=== PATIENT | male | born 1975 | race African-American/Black ===

== ENCOUNTER 2016-06-15 01:58 | Emergency (ER) | payer BC ==
[2016-06-15 02:09] VITALS: BP 123/75
[2016-06-15] MEDS ORDERED: Oseltamivir CAP* 75 MG PO ONE (02:44)
[2016-06-15] MEDS ORDERED: Ibuprofen TAB* 400 MG PO ONE (02:45)
--- NOTE | 2016-06-15 03:01 | ED ---
I, Todd,Huy, scribed for Leny Glez MD on 06/15/16 at 0249 . Influenza-Like Illness - HPI Summary HPI Summary: This 41 y/o male presents to ED for flu-like symptoms since yesterday. Pt reports sore throat, left sided face pain, general myalgia, and chills, but denies any cough. Temperature of 100.6 F is noted at triage. He has been controlling his symptoms with Theraflu and APAP without much relief. PMHx includes recurrent sinus infection. 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 He lives with his and two kids, each 8 y/o and 16 y/o. - History of Current Complaint Chief Complaint: EDFluSymptoms Time Seen by Provider: 06/15/16 02:26 Hx Obtained From: Patient, Medical Records Onset/Duration: Sudden Onset, Still Present Associated Signs & Symptoms: Fever, T Max - 100.6 F, Myalgia, Sore Throat - Allergy/Home Medications Allergies/Adverse Reactions: Allergies Allergy/AdvReac Type Severity Reaction Status Date / Time Prochlorperazine Allergy Intermediate Anxiety Verified 04/30/15 10:38 [From Compazine] PMH/Surg Hx/FS Hx/Imm Hx Endocrine/Hematology History: Denies: Hx Diabetes, Hx Thyroid Disease Cardiovascular History: Denies: Hx Congestive Heart Failure, Hx Deep Vein Thrombosis, Hx Hypertension , Hx Myocardial Infarction, Hx Pacemaker/ICD Respiratory History: Reports: Other Respiratory Problems/Disorders - recurrent sinusitis Denies: Hx Asthma, Hx Chronic Obstructive Pulmonary Disease (COPD), Hx Lung Cancer GI History: Denies: Hx Gall Bladder Disease, Hx Gastrointestinal Bleed, Hx Ulcer, Hx Urosepsis History: Denies: Hx Kidney Stones, Hx Renal Disease Neurological History: Denies: Hx Dementia, Hx Migraine, Hx Seizures, Hx Transient Ischemic Attacks (TIA) Psychiatric History: Denies: Hx Anxiety, Hx Depression, Hx Schizophrenia, Hx Bipolar Disorder Infectious Disease History: No Infectious Disease History: Denies: Hx Hepatitis, Hx Human Immunodeficiency Virus (HIV), History Other Infectious Disease, Traveled Outside the [place] in Last 30 Days - Family History Known Family History: Negative: Hypertension, Diabetes - Social History Lives: With Family - and kids, 8 y/o and 16 y/o Alcohol Use: None Hx Substance Use: No Substance Use Type: Reports: None Hx Tobacco Use: No Smoking Status (MU): Never Smoked Tobacco Have You Smoked in the Last Year: No Review of Systems Positive: Fever - temperature of 100.6 F at triage, Chills Positive: Sore Throat Positive: Myalgia - general myalgia Negative: Anxious, Depressed All Other Systems Reviewed And Are Negative: Yes Physical Exam Triage Information Reviewed: Yes Vital Signs On Initial Exam: Initial Vitals Temp Pulse Resp BP Pulse Ox 100.6 F 105 16 123/75 96 06/15/16 02:04 06/15/16 02:04 06/15/16 02:04 06/15/16 02:04 06/15/16 02:04 Vital Signs Reviewed: Yes Appearance: Positive: Ill-Appearing Skin: Positive: Warm, Skin Color Reflects Adequate Perfusion, Dry Head/Face: Positive: Normal Head/Face Inspection Eyes: Positive: EOMI, NOHELIA, Conjunctiva Clear Neck: Positive: Supple, Nontender, No Lymphadenopathy Cardiovascular: Positive: RRR, Pulses are Symmetrical in both Upper and Lower Extremities Abdomen Description: Positive: Nontender, Soft Musculoskeletal: Positive: Strength/ROM Intact Neurological: Positive: Sensory/Motor Intact, Alert, Oriented to Person Place, Time Psychiatric: Positive: Affect/Mood Appropriate AVPU Assessment: Alert Diagnostics - Vital Signs Vital Signs Temp Pulse Resp BP Pulse Ox 06/15/16 02:04 100.6 F 105 16 123/75 96 - Laboratory Lab Results: Lab Results 06/15/16 Range/Units 02:35 Influenza A (Rapid) Negative (Negative) Influenza B (Rapid) Negative (Negative) Lab Statement: Any lab studies that have been ordered have been reviewed, and results considered in the medical decision making process. Flu Symptom Course/Dx - Course Assessment/Plan: This 41 y/o male presents to ED for acute flu-like symptoms since last evening. Pt reports chills, general myalgia, and sore throat. Negative cough. Rapid flu is negative. Plan of care involving empirical treatment with Tamiflu and ibuprofen and discharge with work note is discussed with pt and pt's parents present at bedside. Pt is agreeable. Upon evaluation of pt his flu swab had been taken and patient and family asked if he could go home now. Pt was treated presumptively for flu given symptoms, his flu swab is actually negative, so upon discharge, plan was discussed with family that the neg swab may be a false negative as seen with flu or not and that if his symptoms worsened a bigger workup was necessary and that the workup could be done now, family elected to leave and will bring patient back for worsened symptoms. Pt is non-toxic appearing and has no co-morbidities making sepsis a likely candidate in this situation - Diagnoses Provider Diagnoses: Flu-like symptoms Discharge - Discharge Plan Condition: Stable Disposition: HOME Prescriptions: Ibuprofen TAB* [Motrin TAB* 800 MG] 800 mg PO Q6H PRN #20 tab PRN Reason: Fever Oseltamivir CAP* [Tamiflu CAP*] 75 mg PO BID #9 cap Patient Education Materials: Ibuprofen (By mouth), Oseltamivir (By mouth), Influenza (ED) Forms: *Work Release Referrals: Kendell Cannon MD [Primary Care Provider] - 2 Days The documentation as recorded by the Todd soto Soohyun accurately reflects the service I personally performed and the decisions made by me, Leny Glez MD.
== END 2016-06-15 02:59 | disposition home or self-care (01) ==
LOC: ED 01:58
DX: J11.1 Influenza due to unidentified influenza virus with other respiratory manifestations (principal); J02.9 Acute pharyngitis, unspecified; R51 Headache
CPT/HCPCS: 87502; 99282; A9270-GY

== ENCOUNTER 2017-06-21 18:44 | Emergency (ER) | payer BC ==
[2017-06-21 19:46] VITALS: BP 125/69
--- NOTE | 2017-06-21 21:05 | UC ---
FLU HPI - HPI Summary HPI Summary: Pt presents with body aches and fatigue since yesterday. He tells me that his is sick with similar symptoms and that his son was recently diagnosed with the flu. He has been taking tylenol for his discomfort. Denies cough, SOB, chest pain, abdominal pain, n/v/d/c. - History of Current Complaint Chief Complaint: UCRespiratory Stated Complaint: BODYACHES,CONGESTED Hx Obtained From: Patient Onset/Duration: Sudden Onset Severity Currently: Moderate Severity Initially: Moderate Pain Intensity: 7 Pain Scale Used: 0-10 Numeric - Allergy/Home Medications Allergies/Adverse Reactions: Allergies Allergy/AdvReac Type Severity Reaction Status Date / Time prochlorperazine Allergy Severe ANXIETY; Verified 06/21/17 19:46 [From Compazine] DYSTONIC REACTION Home Medications: Home Medications Acetaminophen [Mapap] 1,000 mg PO PRN 06/21/17 [History] PMH/Surg Hx/FS Hx/Imm Hx Previously Healthy: Yes - Surgical History Surgical History: None - Family History Known Family History: Positive: None Negative: Hypertension, Diabetes - Social History Occupation: Employed Full-time Lives: With Family Alcohol Use: None Substance Use Type: None Smoking Status (MU): Never Smoked Tobacco Have You Smoked in the Last Year: No Review of Systems Constitutional: Fever, Fatigue, Other - Body aches Skin: Negative Eyes: Negative ENT: Negative Respiratory: Negative Cardiovascular: Negative Gastrointestinal: Negative Neurological: Negative Psychological: Negative All Other Systems Reviewed And Are Negative: Yes Physical Exam Triage Information Reviewed: Yes Appearance: Well-Nourished, Ill-Appearing Vital Signs: Initial Vital Signs Temp 99 F 06/21/17 19:43 Pulse 106 06/21/17 19:43 Resp 16 06/21/17 19:43 BP 125/69 06/21/17 19:43 Pulse Ox 100 06/21/17 19:43 Vital Signs Reviewed: Yes Eyes: Positive: Conjunctiva Clear. Negative: Conjunctiva Inflamed, Discharge ENT: Positive: Hearing grossly normal, Pharynx normal, TMs normal, Uvula midline. Negative: Pharyngeal erythema, Nasal congestion, Nasal drainage, TM bulging, TM dull, TM red, Tonsillar swelling, Tonsillar exudate, Hoarse voice, Sinus tenderness Neck: Positive: Supple, Nontender, No Lymphadenopathy Respiratory: Positive: Lungs clear, Normal breath sounds, No respiratory distress, No accessory muscle use Cardiovascular: Positive: RRR, No Murmur, Pulses Normal Neurological: Positive: Fatigued Psychological: Positive: Age Appropriate Behavior Skin: Negative: rashes Flu Course/Dx - Course Course Of Treatment: Suspect influenza due to sick contacts and presentation today. Tamiflu - Differential Dx/Diagnosis Provider Diagnoses: Influenza Discharge - Discharge Plan Condition: Stable Disposition: HOME Prescriptions: Oseltamivir CAP* [Tamiflu CAP*] 75 mg PO BID #10 cap Patient Education Materials: Influenza (ED) Forms: *Work Release Referrals: Kendell Cannon MD [Primary Care Provider] - Additional Instructions: If you develop a fever, shortness of breath, chest pain, new or worsening symptoms - please call your PCP or go to the ED.
== END 2017-06-21 21:20 | disposition home or self-care (01) ==
LOC: UCEAST 18:44
DX: J11.1 Influenza due to unidentified influenza virus with other respiratory manifestations (principal); Z20.828 Contact with and (suspected) exposure to other viral communicable diseases
CPT/HCPCS: 99212; G0463

== ENCOUNTER 2017-12-24 21:34 | Emergency (ER) | payer BC ==
[2017-12-24] MEDS ORDERED: Ibuprofen TAB* 600 MG PO ONE (21:56)
[2017-12-24 22:02] VITALS: BP 135/82
--- NOTE | 2017-12-24 22:06 | UC ---
Hand/Wrist HPI - HPI Summary HPI Summary: Slammed his car door against his hand around 1pm today, he iced it and pain subsided and has been taking ibuprofen but about 4 hrs ago pain started to increase. He states he cannot move his thumb well. Denies PMH, NKDA - History Of Current Complaint Stated Complaint: THUMB & WRIST INJURIES Time Seen by Provider: 12/24/17 21:55 Hx Obtained From: Patient ?: Yes Onset/Duration: Sudden Onset, Lasting Hours Severity Initially: Mild Severity Currently: Moderate Pain Intensity: 6 Character Of Pain: Dull, Throbbing Aggravating Factor(s): Movement, Flexion Alleviating Factor(s): Rest, Ice, OTC Meds Associated Signs And Symptoms: Positive: Bruising - Allergies/Home Medications Allergies/Adverse Reactions: Allergies Allergy/AdvReac Type Severity Reaction Status Date / Time prochlorperazine Allergy Severe ANXIETY; Verified 12/24/17 22:03 [From Compazine] DYSTONIC REACTION Home Medications: Home Medications Ibuprofen TAB* [Motrin TAB* 400 MG] 400 mg PO Q6H PRN 12/24/17 [History Confirmed 12/24/17] PMH/Surg Hx/FS Hx/Imm Hx Previously Healthy: Yes - Surgical History Surgical History: None - Family History Known Family History: Positive: Hypertension, Diabetes - Social History Alcohol Use: None Substance Use Type: None Smoking Status (MU): Never Smoked Tobacco Have You Smoked in the Last Year: No Review of Systems Skin: Negative Musculoskeletal: Arthralgia, Myalgia All Other Systems Reviewed And Are Negative: Yes Physical Exam Triage Information Reviewed: Yes Appearance: Well-Appearing, No Pain Distress, Well-Nourished Vital Signs Reviewed: Yes Eyes: Positive: Conjunctiva Clear ENT: Positive: Hearing grossly normal Neck: Positive: Supple Respiratory: Positive: Chest non-tender Cardiovascular: Positive: Pulses Normal, Brisk Capillary Refill Abdomen Description: Positive: Nontender Musculoskeletal: Positive: Other: - tender along radial aspect of right wrist. Unable to flex thumb. Subungueal hematoma on lunula of right thumb. Radial and ulnar pulses present, capillary refill brisk. Hand/Wrist Course/Dx - Course Course Of Treatment: xray shows non displaced fracture of proximal phalanx right thumb . Thumb spica splint placed, f/u with ortho and primary care. - Differential Dx/Diagnosis Provider Diagnoses: Thumb fracture Discharge - Sign-Out/Discharge Documenting (check all that apply): Patient Departure - Discharge Plan Condition: Good Disposition: HOME Patient Education Materials: Thumb Fracture (ED), Ibuprofen (By mouth) Forms: *Work Release Referrals: Kendell Cannon MD [Primary Care Provider] - Maria G Pearce MD [Medical Doctor] - Additional Instructions: please return to your primary care for follow up. Keep hand elevated , ibuprofen for pain. Continue using splint until f/u orthopedic appointment - Billing Disposition and Condition Condition: GOOD Disposition: Home
--- NOTE | 2017-12-25 07:29 | RAD ---
HISTORY: trauma right hand COMPARISONS: None VIEWS: 6, Frontal, lateral, and oblique views of the right wrist and of the first digit of the right hand FINDINGS: BONE DENSITY: Normal. BONES: There is no displaced fracture. The proximal phalangeal fracture noted in the preliminary report is felt to represent a vascular foramen. 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 ALIGNMENT: There is no dislocation. SOFT TISSUES: Unremarkable. OTHER FINDINGS: None. IMPRESSION: NO ACUTE OSSEOUS INJURY TO THE RIGHT WRIST OR THE FIRST DIGIT OF THE RIGHT HAND. IF SYMPTOMS PERSIST, RECOMMEND REPEAT IMAGING. R2
== END 2017-12-24 22:40 | disposition home or self-care (01) ==
LOC: UCEAST 21:34
DX: S62.514A Nondisplaced fracture of proximal phalanx of right thumb, initial encounter for closed fracture (principal); W23.0XXA Caught, crushed, jammed, or pinched between moving objects, initial encounter; Y92.9 Unspecified place or not applicable
CPT/HCPCS: 99213; A9270-GY; G0463

== ENCOUNTER 2018-05-12 12:52 | Emergency (ER) | payer BC ==
[2018-05-12 13:01] VITALS: BP 118/77
--- NOTE | 2018-05-12 13:11 | UC ---
General HPI - HPI Summary HPI Summary: 43 yo male presents with chest pain. He tells me that he works out often at the gym and about 4 days ago was working out his arms. For the last 2 days has had pain in his left chest and left upper back intermittently and worse with certain movements. When this pain occurs he thinks he is having short of breath , but is unsure if this is due to the pain or if he is "actually short of breath ". No cardiac PMH. Denies recent illness, headache, dizziness, n/v. - History of Current Complaint Chief Complaint: UCUpperExtremity Stated Complaint: BACK PAIN, HAND PAIN Time Seen by Provider: 05/12/18 13:10 Hx Obtained From: Patient Onset Severity: Moderate Current Severity: Moderate Pain Intensity: 7 - Allergy/Home Medications Allergies/Adverse Reactions: Allergies Allergy/AdvReac Type Severity Reaction Status Date / Time prochlorperazine Allergy Severe ANXIETY; Verified 05/12/18 13:01 [From Compazine] DYSTONIC REACTION PMH/Surg Hx/FS Hx/Imm Hx - Additional Past Medical History Additional PMH: Allergies - Surgical History Surgical History: None - Family History Known Family History: Positive: Hypertension, Diabetes - Social History Alcohol Use: None Substance Use Type: None Smoking Status (MU): Never Smoked Tobacco Have You Smoked in the Last Year: No Review of Systems All Other Systems Reviewed And Are Negative: Yes Constitutional: Positive: Negative Skin: Positive: Negative Respiratory: Positive: Shortness Of Breath Cardiovascular: Positive: Chest Pain Gastrointestinal: Positive: Negative Neurovascular: Positive: Negative Neurological: Positive: Negative Psychological: Positive: Negative Physical Exam - Summary Physical Exam Summary: GENERAL: NAD. WDWN. No pain distress. SKIN: No rashes, sores, lesions, or open wounds. CHEST: CTAB. No r/r/w. No accessory muscle use. Breathing comfortably and in no distress. CV: RRR. Without m/r/g. Pulses intact. Pulses intact radial and ulnar. Cap refill <2seconds MSK: Left shoulder: Reproduction of pain with palpation of trapezius muscle near scapula. Pain reproduced with shoulder flexion against resistance. Chest wall NTTP. Left shoulder FROM. Strength 5/5 including biomedical service engineer strength. NEURO: Alert. Sensations intact hand and all fingers. PSYCH: Age appropriate behavior. Triage Information Reviewed: Yes Vital Signs: Initial Vital Signs Temp 98.4 F 05/12/18 12:58 Pulse 58 05/12/18 12:58 Resp 18 05/12/18 12:58 BP 118/77 05/12/18 12:58 Pulse Ox 100 05/12/18 12:58 Vital Signs Reviewed: Yes Course/Dx - Course Course Of Treatment: EKG NSR 55bpm Minimal PATY anterior leads as read by Dr. Carrero. Discussed results with pt. I suspect his chest and back pain are related to a muscle strain, but given his symptoms of "chest pain" and feelings of SOB and now potential abnormal finding on EKG - recommened to go to ED for eval. He declined ambulance transfer. - Diagnoses Provider Diagnosis: Chest pain, Muscle strain Discharge - Sign-Out/Discharge Documenting (check all that apply): Patient Departure All imaging exams completed and their final reports reviewed: No Studies - Discharge Plan Condition: Stable Disposition: HOME-RECOMMEND TO ED Referrals: Kendell Cannon MD [Primary Care Provider] - Additional Instructions: Please go to the ER for further evaluation of your chest pain - Billing Disposition and Condition Condition: STABLE Disposition: Home-Recommend to ED
== END 2018-05-12 13:59 | disposition home health service (06) ==
LOC: UCEAST 12:52
DX: S29.011A Strain of muscle and tendon of front wall of thorax, initial encounter (principal); S29.012A Strain of muscle and tendon of back wall of thorax, initial encounter; R07.9 Chest pain, unspecified; Z88.8 Allergy status to other drugs, medicaments and biological substances; X58.XXXA Exposure to other specified factors, initial encounter; Y92.39 Other specified sports and athletic area as the place of occurrence of the external cause
CPT/HCPCS: 93005; 99212; G0463

== ENCOUNTER 2018-05-13 09:58 | Emergency (ER) | payer BC ==
[2018-05-13] MEDS ORDERED: Aspirin 81 mg CHEW TAB* 81 MG TAB.CHEW PO ONE (11:00)
[2018-05-13 11:16] LABS: ABS Basophils 0 10^3/ul (0-0.2); ABS Eosinophils 0.1 10^3/ul (0-0.6); ABS Lymphocytes 2.2 10^3/ul (1.0-4.8); ABS Monocytes 0.6 10^3/ul (0-0.8); ABS Neutrophils 1.1 10^3/ul (1.5-7.7); ABS Nucleated RBC 0 10^3/ul; Eosinophil % 2.8 %; Hematocrit 47 % (42-52); Hemoglobin 15.3 g/dl (14.0-18.0); Lymphocyte % 54.1 %; Mean Corpuscular HGB Conc 33 g/dl (31-36); Mean Corpuscular Hemoglobin 28 pg (27-31); Mean Corpuscular Volume 86 fL (80-94); Mean Platelet Volume 8.6 fL (7.4-10.4); Nucleated Red Blood Cells % 0.2; Platelet Count 196 10^3/ul (150-450); Red Blood Count 5.47 10^6/ul (4.00-5.40); Red Cell Distribution Width 13 % (10.5-15); White Blood Count 4.1 10^3/ul (3.5-10.8)
--- NOTE | 2018-05-13 11:18 | ED ---
HPI Chest Pain - HPI Summary HPI Summary: Patient is a 43 y/o M presenting to ED with complaints of chest pain and back pain. Provider in room at [facility]. He was seen at [facility] yesterday and was advised to come to ED for further workup. He states that about two weeks ago, he was working out in the gym doing pullups. About 2 days later, he began to experience left-mid upper back pain that he describes as a shooting pain. He states that this pain has been coming and going over the past two weeks. He notes that he can do most of his regular exercise routine but still has difficulty with certain exercises. Patient states that yesterday the pain was about 6-7/10 in severity but notes that he is feeling "better" today. He also reports some chest pain which he characterizes as a tightness that had onset yesterday. In room, patient rates this tightness 1-2/10 in severity, notes that at its worst the pain was 4/10. Patient also reports very minimal SOB. He states that he has not taken any medications for the pain. Patient denies dizziness, nausea, sweating, vomiting, fever, URI Sx, cough. He notes that he had a similar chest pain in 2007, states that he had an EKG done and was told that it was not concerning. He notes that he only takes vitamins. Allergic to prochlorperazine is noted. He denies PMHx of HTN and diabetes. FMHx of cardiac disease, diabetes is endorsed. He notes that no one in his family has under the age of 50. Patient reports no alc, drug usage, does not smoke cigarettes. 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 On triage, pain is denied, nothing is noted to aggravate/alleviate Sx. Home medications and allergies are reviewed. Allergies Allergy/AdvReac Type Severity Reaction Status Date / Time prochlorperazine Allergy Severe ANXIETY; Verified 05/12/18 13:01 [From Compazine] DYSTONIC REACTION - History of Current Complaint Chief Complaint: EDGeneral Time Seen by Provider: 05/13/18 10:39 Hx Obtained From: Patient Onset/Duration: Started Days Ago - chest pain reported to have onset yesterday, Started Weeks Ago - back pain onset 12 days ago, Still Present - chest pain and back pain, but lessened Timing: Intermittent - back pain, Lasting Days - chest pain onset yesterday Current Severity: Mild - in room, rates 1-2/10 Pain Intensity: 1 Pain Scale Used: 0-10 Numeric - 1/10 Character: Tightness Aggravating Factor(s): Nothing Alleviating Factor(s): Nothing Associated Signs and Symptoms: Positive: Chest Pain, Back Pain, Other: - NEGATIVE - URI SX. Negative: Dizziness, Fever, Diaphoresis, Nausea, Cough, Vomiting - Allergy/Home Medications Allergies/Adverse Reactions: Allergies Allergy/AdvReac Type Severity Reaction Status Date / Time prochlorperazine Allergy Severe ANXIETY; Verified 05/12/18 13:01 [From Compazine] DYSTONIC REACTION PMH/Surg Hx/FS Hx/Imm Hx Endocrine/Hematology History: Denies: Hx Diabetes, Hx Thyroid Disease Cardiovascular History: Denies: Hx Congestive Heart Failure, Hx Deep Vein Thrombosis, Hx Hypertension , Hx Myocardial Infarction, Hx Pacemaker/ICD Respiratory History: Reports: Other Respiratory Problems/Disorders - recurrent sinusitis Denies: Hx Asthma, Hx Chronic Obstructive Pulmonary Disease (COPD), Hx Lung Cancer GI History: Denies: Hx Gall Bladder Disease, Hx Gastrointestinal Bleed, Hx Ulcer, Hx Urosepsis History: Denies: Hx Kidney Stones, Hx Renal Disease Neurological History: Denies: Hx Dementia, Hx Migraine, Hx Seizures, Hx Transient Ischemic Attacks (TIA) Psychiatric History: Denies: Hx Anxiety, Hx Depression, Hx Schizophrenia, Hx Bipolar Disorder Infectious Disease History: No Infectious Disease History: Denies: Hx Hepatitis, Hx Human Immunodeficiency Virus (HIV), History Other Infectious Disease, Traveled Outside the [place] in Last 30 Days - Family History Known Family History: Positive: Cardiac Disease, Hypertension, Diabetes - Social History Alcohol Use: None Hx Substance Use: No Substance Use Type: Reports: None Hx Tobacco Use: No Smoking Status (MU): Never Smoked Tobacco Have You Smoked in the Last Year: No Review of Systems Positive: Other - NEGATIVE - URI SX . Negative: Fever, Skin Diaphoresis Positive: Chest Pain Positive: Shortness Of Breath. Negative: Cough Negative: Vomiting, Nausea Musculoskeletal: Other - POSITIVE - BACK PAIN Neurological: Other - NEGATIVE - DIZZINESS All Other Systems Reviewed And Are Negative: Yes Physical Exam - Summary Physical Exam Summary: Appearance: Well-appearing, minimal pain distress, well-nourished Skin: Warm, color reflects adequate perfusion, dry Head: Normal Head/Face inspection, atraumatic Eyes: Conjunctiva clear ENT: Normal inspection Neck: Supple, no nodes, no JVD Respiratory: Lungs clear, normal breath sounds, no respiratory distress Cardio: RRR, No murmur, pulses normal, brisk capillary refill Abdomen: Soft, nontender Bowel sounds: Present Musculoskeletal: Strength Intact/ROM intact, no calf tenderness, no edema. Physically fit/muscular. Psychological: Normal Neuro: Alert, muscle tone normal, no focal deficit Triage Information Reviewed: Yes Vital Signs On Initial Exam: Initial Vitals Temp Pulse Resp BP Pulse Ox 97.5 F 64 16 127/82 100 05/13/18 10:03 05/13/18 10:03 05/13/18 10:03 05/13/18 10:03 05/13/18 10:03 Vital Signs Reviewed: Yes Diagnostics - Vital Signs Vital Signs Temp Pulse Resp BP Pulse Ox 05/13/18 10:03 97.5 F 64 16 127/82 100 - Laboratory Result Diagrams: 05/13/18 11:09 05/13/18 11:09 Lab Statement: Any lab studies that have been ordered have been reviewed, and results considered in the medical decision making process. - Radiology CXR Radiology Interpretation Completed By: Radiologist Summary of Radiographic Findings: CXR IMPRESSION: No radiographic evidence of acute cardiopulmonary disease. THIS REPORT WAS REVIEWED BY ED PHYSICIAN. - EKG 1046 Cardiac Rate: Bradycardia - rate of 59 BPM EKG Rhythm: Sinus Bradycardia EKG Comparison: No Significant Change - compared to 05/12/18 and 09/20/07 EKGs Summary of EKG Findings: EKG showed sinus bradycardia with rate of 59 BPM, nl AVIVCT, nl QTc, left axis (-36), no change compared with 05/12/18 and 09/20/07 EKG Re-Evaluation - Re-Evaluation First Eval Re-Evaluation Time: 11:47 Change: Unchanged Comment: Chest tightness is unchanged. Second Eval Re-Evaluation Time: 13:01 Change: Improved Comment: Pain is 0-1/10, he is comfortable, does not want IV, will drink fluids , to give urine sample Third Eval Re-Evaluation Time: 14:11 Change: Improved Comment: Patient reports that he remains pain free, awaiting final troponin. Fourth Eval Re-Evaluation Time: 15:45 Change: Unchanged Comment: Last troponin was zero, discussed discharge to home with patient. He is agreeable with discharge to home. Patient remains pain free. Chest Pain Course/Dx - Course Course Of Treatment: Patient is a 43 y/o M presenting to ED with complaints of chest pain and back pain. He was seen at [facility] yesterday and was advised to come to ED for further workup. He states that about two weeks ago, he was working out in the gym doing pullups. About 2 days later, he began to experience left- mid upper back pain that he describes as a shooting pain. He states that this pain has been coming and going over the past two weeks. He notes that he can do most of his regular exercise routine but still has difficulty with certain exercises. Patient states that yesterday the pain was about 6-7/10 in severity but notes that he is feeling "better" today. He also reports some chest pain which he characterizes as a tightness that had onset yesterday. In room, patient rates this tightness 1-2/10 in severity, notes that at its worst the pain was 4/10. Patient also reports very minimal SOB. He states that he has not taken any medications for the pain. Patient denies dizziness, nausea, sweating, vomiting, fever, URI Sx, cough. He notes that he had a similar chest pain in 2007, states that he had an EKG done and was told that it was not concerning. He denies PMHx of HTN and diabetes. FMHx of cardiac disease, diabetes is endorsed. On physical exam, minimal pain distress is noted, patient is noted to be physically fit/muscular. EKG showed sinus bradycardia with rate of 59 BPM , nl AVIVCT, nl QTc, left axis (-36), no change compared with 05/12/18 and EKG. CXR IMPRESSION: No radiographic evidence of acute cardiopulmonary disease. During ED course, patient received ASA 324 mg PO ED ONCE ONE and fluids. Labs showed RBC 5.47, absolute neuts 1.1, total creatine kinase 415. TSH was 1.42, T4 8.74, lactic acid 1.3, d-dimer < 200, BNP 14. UA was positive for ascorbic acid. First trop was negative, second trop was negative as well. Results of labs and tests were discussed with patient. He states that his pain had resolved. Patient is agreeable with discharge. Dx of chest pain. - Diagnoses Provider Diagnoses: Chest pain Discharge - Sign-Out/Discharge Documenting (check all that apply): Patient Departure - discharge - Discharge Plan Condition: Stable Disposition: HOME Patient Education Materials: Chest Pain (ED) Referrals: [facility] [Outside] - 2 Days [facility] [place] [facility] [Outside] - As Soon As Possible Additional Instructions: You had two troponin levels that were zero. There is no indication that there is a cardiac cause of your chest pain at this time. We did let you know that your CK enzyme level is high at 415, and normal is 233. You will want to stay well hydrated to protect your kidneys from rhabdomyolysis. You will need to get established with a primary care doctor. You may call the [facility] [place] referral number for this. You may also be seen in our [facility] clinic until you can get established with a primary care doctor. Return to the ER if you have any new or worsening symptoms. - Attestation Statements Document Initiated by Scribe: Yes Documenting Scribe: MOE STUBBS Provider For Whom Court is Documenting (Include Credential): BELGICA LOCKWOOD MD Scribe Attestation: MOE Lin , scribed for BELGICA LOCKWOOD MD on 05/13/18 at 1705. Status of Scribe Document: Ready
[2018-05-13 11:25] LABS: Activated Partial Thrombo Time 35.6 seconds (26.0-36.3); INR 0.98 (0.77-1.02)
[2018-05-13 11:34] LABS: Albumin 4.2 g/dL (3.2-5.2); Albumin/Globulin Ratio 1.2 (1-3); BUN/Creatinine Ratio 14.8 (8-20); Calcium 9.7 mg/dL (8.6-10.3); Globulin 3.5 g/dL (2-4); Potassium 3.9 mmol/L (3.5-5.0); Total Bilirubin 0.9 mg/dL (0.2-1.0); Total Protein 7.7 g/dL (6.4-8.9)
[2018-05-13 12:12] LABS: TSH (Thyroid Stimulating Horm) 1.42 mcIU/mL (0.34-5.60)
[2018-05-13] MEDS ORDERED: NS 0.9% 1000 ML* 2,000 ML IV ONE (12:59)
[2018-05-13 14:31] LABS: Urine Appearance Clear; Urine Bilirubin Negative (Negative); Urine Blood Negative (Negative); Urine Color Yellow; Urine Glucose Negative (Negative); Urine Ketones Negative (Negative); Urine Nitrite Negative (Negative); Urine Protein Negative (Negative); Urine Specific Gravity 1.017 (1.010-1.030); Urine Urobilinogen Negative (Negative)
[2018-05-13 15:30] LABS: Barbiturates Urine Screen None Detected (None Detect); Benzodiazepine Urine Screen None Detected (None Detect); Urine Cannabinoids Screen None Detected (None Detect)
[2018-05-13 15:58] VITALS: BP 122/81
== END 2018-05-13 15:58 | disposition home or self-care (01) ==
LOC: ED 09:58
DX: R07.9 Chest pain, unspecified (principal); R00.1 Bradycardia, unspecified
CPT/HCPCS: 36415; 71046; 80053; 80307; 81003; 82550; 82553; 83605; 83880; 84436; 84443; 84484; 85025; 85379; 85610; 85730; 93005; 99283; A9270-GY

== ENCOUNTER 2018-05-18 18:16 | Emergency (ER) | payer BC ==
[2018-05-18 18:30] VITALS: BP 106/66
--- NOTE | 2018-05-18 19:14 | UC ---
Upper Extremity HPI - HPI Summary HPI Summary: 43 y/o male presents to the urgent care c/o left shoulder pain radiating to the arm and shoulder blade for the past 3 weeks. Pt reports shoulder pain worsen over night since he slept on that side and woke him up around 0300AM. He took Ibuprofen 400mg PO to alleviate symptoms. Pain now is 5/10 and sharp when he tries to raise arm or move arm to the back. Pt reports he was seen in the Er about 5 days ago w/ similar symptoms but he also had chest tightness. He had a full cardiac work up and everything was negative and Dx w/ Muscular pain. He regularly does heavy lifting at the [employer] and since he was cleared from any cardiac , he thinks he over did it 2 days ago when he was lifting some weights at the [employer]. Pt denies fever, SOB, numbness or tingling sensation, chest pain, neck pain , abdominal pain, dizziness, N/V/D. - History of Current Complaint Chief Complaint: UCUpperExtremity Stated Complaint: ARE AND SHOULDER INJURY Time Seen by Provider: 05/18/18 19:09 Hx Obtained From: Patient Onset/Duration: Gradual Onset, Lasting Weeks - 3 weeks, Still Present, Worse Since - yesterday Severity Initially: Mild Severity Currently: Moderate Pain Intensity: 5 Pain Scale Used: 0-10 Numeric Location Of Pain: Is Discrete @ - left shoulder, Radiates To - left upper arm and shoulder blade Character: Sharp - w/ movement, Dull, Spasmodic Aggravating Factor(s): Movement, Lifting, Abduction Alleviating Factor(s): OTC Meds, Rest Associated Signs And Symptoms: Positive: Negative. Negative: Swelling, Bruising , Fever, Weakness, Numbness/Tingling - Risk Factors Non-Orthopedic Risk Factor: Negative DVT Risk Factors: Negative Septic Arthritis Risk Factor: Negative - Allergies/Home Medications Allergies/Adverse Reactions: Allergies Allergy/AdvReac Type Severity Reaction Status Date / Time prochlorperazine Allergy Severe ANXIETY; Verified 05/18/18 18:30 [From Compazine] DYSTONIC REACTION PMH/Surg Hx/FS Hx/Imm Hx Previously Healthy: Yes - Pt denies PMHX - Surgical History Surgical History: None - Family History Known Family History: Positive: Cardiac Disease, Hypertension, Diabetes - Social History Occupation: Employed Full-time Lives: With Family Alcohol Use: None Substance Use Type: None Smoking Status (MU): Never Smoked Tobacco Have You Smoked in the Last Year: No Review of Systems All Other Systems Reviewed And Are Negative: Yes Constitutional: Positive: Negative Skin: Positive: Negative Eyes: Positive: Negative ENT: Positive: Negative Respiratory: Positive: Negative Cardiovascular: Positive: Negative Gastrointestinal: Positive: Negative Genitourinary: Positive: Negative Motor: Positive: Negative Neurovascular: Positive: Negative Musculoskeletal: Positive: Decreased ROM - left shoulder, Other: - left shoulder pain s/p weight lifting at the [employer] Neurological: Positive: Negative Psychological: Positive: Negative Is Patient Immunocompromised?: No Physical Exam - Summary Physical Exam Summary: Vital Signs Reviewed: Yes GENERAL: Well-Appearing, No Pain Distress, Well-Nourished male w/o any apparent pain distress Eyes: Positive: Conjunctiva Clear - PERRL,EOMI ENT: Positive: Normal ENT inspection, Hearing grossly normal, Pharyngeal erythema - mild, Nasal drainage - clear, Uvula midline Neck: Positive: Supple, Nontender, No Lymphadenopathy Respiratory: Positive: Chest non-tender, Lungs clear, Normal breath sounds, No respiratory distress Cardiovascular: Positive: RRR, No Murmur, Pulses Normal, Brisk Capillary Refill Abdomen Description: Positive: Nontender, No Organomegaly, Soft. Negative: CVA Tenderness (R), CVA Tenderness (L) Bowel Sounds: Positive: Present Musculoskeletal: LF shoulder: The L shoulder is with/without obvious asymmetry or deformity when compared to the R shoulder. No ecchymosis or bruising, no crepitus. No bony deformity or prominence of humeral head. No erythema, warmth. No Point Tenderness to palpation over the clavicle, Mild tenderness over the scapula. positive tenderness over Acromioclavicular joint and humeral head. Mild tenderness to palpation of the bicipital groove . NT to palpation of the muscles of the sternocleidomastoid, pectoralis, biceps/triceps, deltoid, trapezius, . Limited ROM due to pain especially in adduction and abduction.on both passive and active, internal/external rotation, flexion/extension. "empty can and drop arm test unable to perform due to pain. No axillary tenderness or lymphadenopathy. Normal sensation over the deltoid and fingers. Distal motor and neurovascular status is intact. Neurological Exam: Normal Psychological Exam: Normal Skin Exam: Normal Triage Information Reviewed: Yes Vital Signs: Initial Vital Signs Temp 98.5 F 05/18/18 18:26 Pulse 82 05/18/18 18:26 Resp 16 05/18/18 18:26 BP 106/66 05/18/18 18:26 Pulse Ox 97 05/18/18 18:26 Upper Extremity Course/Dx - Course Course Of Treatment: 43 y/o male presents to the urgent care c/o left shoulder pain radiating to the arm and shoulder blade for the past 3 weeks. Pt reports shoulder pain worsen over night since he slept on that side and woke him up around 0300AM. He took Ibuprofen 400mg PO to alleviate symptoms. Pain now is 5/ 10 and sharp when he tries to raise arm or move arm to the back. Pt reports he was seen in the Er about 5 days ago w/ similar symptoms but he also had chest tightness. He had a full cardiac work up and everything was negative and Dx w/ Muscular pain. He regularly does heavy lifting at the [employer] and since he was cleared from any cardiac, he thinks he over did it 2 days ago when he was lifting some weights at the [employer]. Pt denies fever, SOB, numbness or tingling sensation, chest pain, neck pain, abdominal pain, dizziness, N/V/D. Hx obtained. LF shoulder X-ray ordered: Impression: No fracture or dislocations observed. However final Radiology reports still pending until tomorrow. Pt explained he will be notified tomoorow of final reading. Pt's Rx Ibuprofen PO and Flexeril PO as directed below to alleviate symptoms. Shoulder immobilized with a shoulder sling for 2-3 days. Advised to f/u with Orthopedic referral at [facility] for further evaluation as soon as possible. D/c instructions explained. Pt understood and agreed w/ plan of care. - Differential Dx/Diagnosis Differential Diagnosis/HQI/PQRI: Arthritis, Bursitis, Contusion, Fracture ( Closed), Strain, Sprain Provider Diagnosis: Shoulder strain Discharge - Sign-Out/Discharge Documenting (check all that apply): Patient Departure - d/C home All imaging exams completed and their final reports reviewed: No - Discharge Plan Condition: Stable Disposition: HOME Prescriptions: Cyclobenzaprine TAB* [Flexeril 10 MG TAB*] 10 mg PO TID PRN #21 tab PRN Reason: Spasms - Muscle Ibuprofen TAB* [Motrin TAB* 800 MG] 800 mg PO Q6H PRN #30 tab PRN Reason: Pain Patient Education Materials: Shoulder Sprain (ED) Forms: *Work Release Referrals: [facility] [place] [facility]ERR[facility] [Outside] - 3 Days [facility] [Provider Group] - 2 Days Additional Instructions: 1-Please take medications as directed to alleviate pain and swelling. 2-Please apply ice, keep your shoulder immobilized with the shoulder sling for 2-3 days and then resume movement slowly. 3- Please f/u with Orthopedic From [facility] in 2 days for further evaluation and treatment. - Billing Disposition and Condition Condition: STABLE Disposition: Home
[2018-05-18] MEDS ORDERED: Ibuprofen TAB* 400 MG PO ONE (19:30)
[2018-05-18] MEDS ORDERED: Cyclobenzaprine TAB* 10 MG PO ONE (20:00)
--- NOTE | 2018-05-19 10:47 | UC ---
- EKG/XRAY/CT Xray Comments: wet read correct Course/Dx - Diagnoses Provider Diagnoses: Shoulder strain Discharge - Sign-Out/Discharge Documenting (check all that apply): Post-Discharge Follow Up All imaging exams completed and their final reports reviewed: Yes - Discharge Plan Condition: Stable Disposition: HOME Prescriptions: Cyclobenzaprine TAB* [Flexeril 10 MG TAB*] 10 mg PO TID PRN #21 tab PRN Reason: Spasms - Muscle Ibuprofen TAB* [Motrin TAB* 800 MG] 800 mg PO Q6H PRN #30 tab PRN Reason: Pain Patient Education Materials: Shoulder Sprain (ED) Forms: *Work Release Referrals: [facility] [Provider Group] - 2 Days [facility] PH[facility]IAN REFERRAL [Outside] - 3 Days Additional Instructions: 1-Please take medications as directed to alleviate pain and swelling. 2-Please apply ice, keep your shoulder immobilized with the shoulder sling for 2-3 days and then resume movement slowly. 3- Please f/u with Orthopedic From [facility] in 2 days for further evaluation and treatment. - Billing Disposition and Condition Condition: STABLE Disposition: Home
== END 2018-05-18 20:21 | disposition home or self-care (01) ==
LOC: UCEAST 18:16
DX: S46.912A Strain of unspecified muscle, fascia and tendon at shoulder and upper arm level, left arm, initial encounter (principal); X58.XXXA Exposure to other specified factors, initial encounter; Y92.9 Unspecified place or not applicable; Z88.8 Allergy status to other drugs, medicaments and biological substances
CPT/HCPCS: 99213; A9270-GY; G0463